=== PATIENT | male | born 1960 | race Caucasian/White ===

== ENCOUNTER → 2017-10-13 | Outpatient (CLI) | payer BC ==
--- NOTE | 2017-10-13 15:06 | RAD ---
History: Left foot pain. Swelling at the plantar aspect of the 5th MTP joint for 1.5 months. Comparison: None. Findings: Several imaging was performed of the plantar aspect of the left foot at the 5th MTP joint area of clinical interest. There does appear to be irregular hypoechoic soft tissue swelling in the location of interest measure about 2.3 x 1.7 x 0.4 cm. There may be a very small component of fluid. Additional imaging was performed of the contralateral plantar 5th MTP joint as comparison. No abnormality is seen. Impression: 1. Area of clinical interest corresponds to irregular soft tissue thickening measuring about 1.7 x 0.4 x 2.3 cm. There may be a small amount of fluid is well. Findings are nonspecific. Inflammation of the 5th MTP joint/arthritis with thickening of the synovium small amount of fluid is possible. Mass or foreign body reaction is not excluded. Correlation with radiographs and MR of the foot with intravenous contrast may be helpful for further evaluation. Electronically signed by: Richmond Manzano MD (10/13/2017 3:03 PM) [facility]
== END | disposition home or self-care (01) ==
LOC: US 13:15
PROVIDERS: ATTEND Family Medicine
DX: M79.89 Other specified soft tissue disorders (principal)
CPT/HCPCS: 76881